=== PATIENT | female | born 1950 | race Caucasian/White ===

== ENCOUNTER 2017-08-31 06:38 | Emergency (ER) | payer MEDICARE, MEDICAID ==
[~2017-08-31] VITALS: Ht 165.1 cm; Wt 112.9 kg
--- NOTE | 2017-08-31 06:41 | NUR ---
Patient to ER bed 8 to gown for evaluation. Side rails up. Report given to Tara ACEVEDO.
[2017-08-31 06:44] VITALS: BP_SYST 189
--- NOTE | 2017-08-31 06:45 | NUR ---
Patient AOx4, ambulatory, presents to ER with complaint of right wrist pain 10/10 and swelling s/p fall. Patient states hx of HTN and umbilical hernia. No other symptoms or complaints at this time. 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
--- NOTE | 2017-08-31 06:46 | NUR ---
ER MD Reed at bedside for medical evaluation.
--- NOTE | 2017-08-31 07:13 | NUR ---
Report given to KRISTINA Lucia. All care endorsed.
[2017-08-31] MEDS ORDERED: IBUPROFEN 800 MG TABLET PO ONE (07:30)
--- NOTE | 2017-08-31 07:35 | NUR ---
Pt medicated w/ Motrin. Pain level 10/10 on R wrist. Pt tolerated well.
--- NOTE | 2017-08-31 07:40 | NUR ---
Ezra wrap applied to pt's R wrist. No signs of decreased perfusion after application of ezra wrap. Pt states that wrap is comfortably placed and provides pressure relief / support. Pt educated on follow up care and verbalizes understanding of teaching.
[2017-08-31 07:45] VITALS: BP_SYST 189
--- NOTE | 2017-08-31 07:45 | NUR ---
Patient given written and verbal discharge instructions and verbalizes understanding. ER MD discussed with patient the results and treatment provided. Patient in stable condition. ID arm band removed. No Rx given. Patient educated on pain management to alternate between ibuprofen and tylenol prn for pain and to follow up with PMD for any new / worsening symptoms. Pain Scale 3/10. Opportunity for questions provided and answered.
== END 2017-08-31 07:45 | disposition home or self-care (01) ==
LOC: SED 06:38
DX: S63.501A Unspecified sprain of right wrist, initial encounter (principal); W01.198A Fall on same level from slipping, tripping and stumbling with subsequent striking against other object, initial encounter; Y93.89 Activity, other specified; Y92.89 Other specified places as the place of occurrence of the external cause; Y99.8 Other external cause status
CPT/HCPCS: 99284